=== PATIENT | female | born 1995 | race Caucasian/White ===

== ENCOUNTER 2017-07-29 23:11 | Emergency (ER) | payer SELFPAY ==
[~2017-07-29] VITALS: Ht 160 cm; Wt 60.3 kg
[2017-07-29 23:17] VITALS: Ht 160 cm; Wt 60.3 kg
[2017-07-30 01:30] VITALS: BP 113/57
== END 2017-07-30 01:30 | disposition home or self-care (01) ==
LOC: ED 23:11
DX: L05.91 Pilonidal cyst without abscess (principal); K21.9 Gastro-esophageal reflux disease without esophagitis